=== PATIENT | male | born 2000 | race Caucasian/White ===

== ENCOUNTER 2023-12-13 06:48 | Emergency (ER) | payer SELFPAY ==
[2023-12-13] MEDS: Ketorolac 60 MG/2 ML SDV IM ONE (08:52)
== END 2023-12-13 09:58 | disposition home or self-care (01) ==
LOC: JD.ED 06:48
DX: M54.50 Low back pain, unspecified (principal); F17.210 Nicotine dependence, cigarettes, uncomplicated; Z79.899 Other long term (current) drug therapy; Z86.16 Personal history of COVID-19
CPT/HCPCS: 96372; 99283; J1885

== ENCOUNTER 2024-11-20 06:18 | Emergency (ER) | payer SELFPAY ==
[2024-11-20] MEDS: Sodium Chloride 0.9% 1,000 ML IV STA (07:29)
[2024-11-20] MEDS: Ketorolac 30 MG/ML SDV IVPUSH ONE (07:29)
[2024-11-20] MEDS: Sodium Chloride 0.9% 10 ML Syringe FLUSH PRN (07:29)
[2024-11-20] MEDS: Metoclopramide 10 MG/2 ML SDV IVPUSH ONE (07:29)
[2024-11-20 07:41] LABS: BASOPHILS PERCENT AUTO 0.9 % (0.0-1.0); EOSINOPHILS ABSOLUTE AUTO 0.1 K/mm3 (0.0-0.4); EOSINOPHILS PERCENT AUTO 1.9 % (0.0-6.0); IMMATURE GRAN ABSOLUTE AUTO 0.01 K/mm3 (0.00-0.05); IMMATURE GRAN PERCENT AUTO 0.2 % (0.0-0.4); LYMPHOCYTES ABSOLUTE AUTO 1.2 K/mm3 (1.0-4.8); MEAN CORPUSCULAR HEMOGLOBIN 28.2 pg (28.0-32.0); MEAN CORPUSCULAR HGB CONC 33.3 g/dl (32.0-36.0); MEAN CORPUSCULAR VOLUME 84.7 fl (83.0-99.0); MEAN PLATELET VOLUME 10.4 fl (9.4-12.4); MONOCYTES ABSOLUTE AUTO 0.4 K/mm3 (0.0-0.8); MONOCYTES PERCENT AUTO 9.4 % (0.0-8.0); NEUTROPHILS ABSOLUTE AUTO 2.5 K/mm3 (1.8-7.7); NEUTROPHILS PERCENT AUTO 58.6 % (41.0-71.0); PLATELET COUNT,PLT 247 K/mm3 (150-400); RED BLOOD CELL COUNT 5.31 M/mm3 (4.52-5.90); WHITE BLOOD CELL COUNT,WBC 4.27 K/mm3 (3.9-11.3)
[2024-11-20] MEDS: LORazepam 2 MG/ML SDV ONE (07:48)
[2024-11-20] MEDS: LORazepam 2 MG/ML SDV IVPUSH ONE (07:48)
[2024-11-20 07:58] LABS: ALBUMIN 3.8 g/dl (3.4-5.0); ANION GAP 15.4 (5-15); BILIRUBIN TOTAL 0.4 mg/dL (0.2-1.0); BUN/CREATININE RATIO 11.1 (14-18); CALCIUM 9.2 mg/dL (8.5-10.1); CREATININE 0.9 mg/dL (0.7-1.3); EST CRCL DRUG DOSING (CG) 138.91 mL/min; MAGNESIUM 2.1 mg/dL (1.8-2.4); POTASSIUM,K 4.4 mEq/L (3.5-5.1); PROTEIN TOTAL,TP 7.5 g/dl (6.4-8.2)
[2024-11-20] MEDS: Iopamidol 612 MG/ML 100 ML Bottle IVPUSH ONE (08:07)
[2024-11-20] MEDS: diphenhydrAMINE 50 MG/ML SDV IVPUSH ONE (08:22)
[2024-11-20] MEDS: Sodium Chloride 0.9% 10 ML Syringe FLUSH ONE (08:27)
== END 2024-11-20 09:49 | disposition home or self-care (01) ==
LOC: JD.ED 06:18
DX: K52.9 Noninfective gastroenteritis and colitis, unspecified (principal); J06.9 Acute upper respiratory infection, unspecified; F17.210 Nicotine dependence, cigarettes, uncomplicated; Z88.8 Allergy status to other drugs, medicaments and biological substances; Z86.16 Personal history of COVID-19
CPT/HCPCS: 36415; 71046; 74177; 80053; 83690; 83735; 85025; 87428; 96361; 96374; 96375; 99284; J1200; J1885; J2060; J2765; J7030; Q9967